=== PATIENT | female | born 1995 | race Caucasian/White ===

== ENCOUNTER 2016-09-16 13:47 | Emergency (ER) | payer MEDICAID ==
--- NOTE | 2016-09-16 13:58 | ER Document Report ---
ED Medical Screen (RME) - General Stated Complaint: VOMITING Notes: 20 yo c/o vomiting x 3 days. G1 14 wks gestation. no abdominal pain. no vaginal bleeding. OB - [facility] + sick exposures at work. abdomen is soft, nontender. no guarding - Related Data Allergies/Adverse Reactions: No Known Allergies Allergy (Unverified 09/16/16 13:55)
[2016-09-16 14:14] LABS: ABSOLUTE LYMPHOCYTES (AUTO) 1.4 10^3/uL (0.5-4.7); ABSOLUTE MONOCYTES (AUTO) 0.5 10^3/uL (0.1-1.4); BASOPHILS % (AUTO) 0.2 % (0-2); EOSINOPHILS % (AUTO) 0.1 % (0-6); HEMATOCRIT 40.4 % (36.0-47.0); HEMOGLOBIN 13.9 g/dL (12.0-15.5); HGB HCT DIFFERENCE 1.3; LYMPHOCYTES % (AUTO) 18.3 % (13-45); MEAN CORPUSCULAR HEMOGLOBIN 28.2 pg (27.0-33.4); MEAN CORPUSCULAR HGB CONC 34.4 g/dL (32.0-36.0); MEAN CORPUSCULAR VOLUME 82 fl (80-97); MONOCYTES % (AUTO) 5.8 % (3-13); RED BLOOD COUNT 4.94 10^6/uL (3.72-5.28); RED CELL DISTRIBUTION WIDTH 14.5 % (11.5-14.0); SEGMENTED NEUTROPHILS % (AUTO) 75.6 % (42-78); WHITE BLOOD COUNT 7.9 10^3/uL (4.0-10.5)
[2016-09-16 14:23] LABS: APPEARANCE,URINE SLIGHTLY-CLOUDY; BILIRUBIN,URINE NEGATIVE (NEGATIVE); GLUCOSE, URINE NEGATIVE (NEGATIVE); KETONES,URINE 80 mg/dL (NEGATIVE); LEUKOCYTE ESTERASE,URINE TRACE (NEGATIVE); NITRITE,URINE NEGATIVE (NEGATIVE); PROTEIN,URINE 30 mg/dL (NEGATIVE); URINE SPECIFIC GRAVITY 1.031
[2016-09-16 14:29] LABS: ALANINE AMINOTRANSFERASE 25 U/L (5-35); ALBUMIN 4.3 g/dL (3.7-5.6); ALKALINE PHOSPHATASE 61 U/L (50-135); ANION GAP 15 (5-19); ASPARTATE AMINO TRANSFERASE 23 U/L (5-30); BILIRUBIN,TOTAL 0.5 mg/dL (0.2-1.3); BLOOD UREA NITROGEN 9 mg/dL (7-20); CALCIUM 9.8 mg/dL (8.4-10.2); CARBON DIOXIDE 21 mmol/L (22-30); CHLORIDE 103 mmol/L (98-107); CREATININE RESULT 0.61 mg/dL (0.52-1.25); GLUCOSE 83 mg/dL (75-110); POTASSIUM 4.1 mmol/L (3.6-5.0); SODIUM 138.5 mmol/L (137-145); TOTAL PROTEIN 7.2 g/dL (6.3-8.2)
--- NOTE | 2016-09-16 17:35 | ER Document Report ---
ED GI/ <CHRISTIANO GOEL - Last Filed: 09/17/16 00:21> - General TRAVEL OUTSIDE OF THE [place] IN LAST 30 DAYS: No - HPI Patient complains to provider of: Vomiting Onset: Other - see HPI note <SHAD BAEZA - Last Filed: 09/17/16 00:28> - General Chief Complaint: Vomiting Stated Complaint: VOMITING Notes: Patient is a 18-year-old female presented emerged department for complaint of vomiting. Patient is almost 14 weeks' . Patient states she has been vomiting since Wednesday night. Patient said she stopped vomiting Wednesday morning and it started up again last night and today. Patient states that her [employer] is Dr. Goodman patient has not seen him yet. Patient states that her appointment is next Wednesday. Patient states she also had some diarrhea the first day that she was vomiting, but none since. Patient denies any abdominal pain, vaginal bleeding, or fever. Patient has no known allergies. (SHAD BAEZA) - Related Data Allergies/Adverse Reactions: No Known Allergies Allergy (Unverified 09/16/16 13:55) Past Medical History - General Information source: Patient, Parent - Social History Smoking Status: Never Smoker Cigarette use (# per day): No Chew tobacco use (# tins/day): No Frequency of alcohol use: None Drug Abuse: None Family History: None Patient has suicidal ideation: No Patient has homicidal ideation: No <SHAD BAEZA - Last Filed: 09/17/16 00:28> Review of Systems - Review of Systems Constitutional: No symptoms reported EENT: No symptoms reported Cardiovascular: No symptoms reported Respiratory: No symptoms reported Gastrointestinal: See HPI, Nausea, Vomiting Genitourinary: No symptoms reported Female Genitourinary: No symptoms reported Musculoskeletal: No symptoms reported Skin: No symptoms reported Hematologic/Lymphatic: No symptoms reported Neurological/Psychological: No symptoms reported -: Yes All other systems reviewed and negative <SHAD BAEZA - Last Filed: 09/17/16 00:28> Physical Exam - Vital signs Interpretation: Normal - General General appearance: Appears well, Alert In distress: Mild - HEENT Head: Normocephalic, Atraumatic Eyes: Normal Pupils: PERRL Mucous membranes: Moist - Respiratory Respiratory status: No respiratory distress Chest status: Nontender Breath sounds: Normal Chest palpation: Normal - Cardiovascular Rhythm: Regular Heart sounds: Normal auscultation Murmur: No - Abdominal Inspection: Normal Distension: No distension Bowel sounds: Normal Tenderness: Nontender Organomegaly: No organomegaly - Back Back: Normal, Nontender - Extremities General upper extremity: Normal inspection, Normal ROM, Normal strength General lower extremity: Normal inspection, Normal ROM, Normal strength - Neurological Neuro grossly intact: Yes Cognition: Normal Orientation: AAOx4 Deepa Coma Scale Eye Opening: Spontaneous [place] Coma Scale Verbal: Oriented [place] Coma Scale Motor: Obeys Commands [place] Coma Scale Total: 15 Speech: Normal - Psychological Associated symptoms: Normal affect, Normal mood - Skin Skin Temperature: Warm Skin Moisture: Dry <SHAD BAEZA - Last Filed: 09/17/16 00:28> - Vital signs Vitals: Temp Pulse Resp BP Pulse Ox 98.4 F 113 H 16 119/87 H 100 09/16/16 13:51 09/16/16 13:51 09/16/16 13:51 09/16/16 13:51 09/16/16 13:51 Course - Laboratory Result Diagrams: 09/16/16 14:00 09/16/16 14:00 <CHRISTIANO GOEL - Last Filed: 09/17/16 00:21> - Laboratory Result Diagrams: 09/16/16 14:00 09/16/16 14:00 <SHAD BAEZA - Last Filed: 09/17/16 00:28> - Re-evaluation Re-evalutation: 09/17/16 00:21 I personally performed the services described in the documentation, reviewed and edited the documentation which was dictated to my scribe in my presence, and it accurately records my words and actions. Patient is and has intermittent vomiting for the past 2 or 3 days. She says she can't stand the smell of food when she tries to eat and she vomits. She is on any diarrhea fever chills or abdominal pain. She has not yet seen her [employer] physician she is well-appearing nontoxic in no acute distress afebrile no acute abdominal findings no urinary tract infection or infection. We discussed Zofran has a risk associated with it recommended to try Reglan. Told her that the risk of Reglan as a side effect is agitation and irritability. Patient is not dehydrated is well-appearing nontoxic and was started on Reglan if she needs to use it otherwise told her to drink and keep fluids down at least 20 minutes she'll follow-up with the [employer] physician to 3 days and discussed reasons for ED return sooner (CHRISTIANO GOEL) - Vital Signs Vital signs: Temp Pulse Resp BP Pulse Ox 98.0 F 100 H 18 111/61 98 09/16/16 18:06 09/16/16 18:06 09/16/16 18:06 09/16/16 18:06 09/16/16 18:06 - Laboratory Laboratory results interpreted by me: 09/16/16 09/16/16 09/16/16 14:00 14:00 14:00 RDW 14.5 H Carbon Dioxide 21 L Serum HCG, Qual POSITIVE H Beta HCG, Quant Urine Protein Urine Ketones Urine Urobilinogen Ur Leukocyte Esterase 09/16/16 09/16/16 14:00 14:05 RDW Carbon Dioxide Serum HCG, Qual Beta HCG, Quant 990074.00 H Urine Protein 30 H Urine Ketones 80 H Urine Urobilinogen 2.0 H Ur Leukocyte Esterase TRACE H Discharge <CHRISTIANO GOEL - Last Filed: 09/17/16 00:21> <SHAD BAEZA - Last Filed: 09/17/16 00:28> - Discharge Clinical Impression: Vomiting affecting Condition: Stable Disposition: HOME, SELF-CARE Additional Instructions: Vomiting Vomiting (or nausea without vomiting) can be caused by many other different problems. It can mean that something's wrong with the stomach, such as ulcers or inflammation or the intestinal tract, such as appendicitis. But it can also be a symptom of a problem that has nothing to do with the stomach or intestines. Vomiting is common with severe headaches, earaches, tonsillitis, and kidney infections, etc. We see it with pneumonia or heart attacks. Drugs can cause nausea and vomiting. Many abdominal problems cause vomiting; for example, gallstones, kidney stones, pancreatitis, and intestinal obstruction ( blocked bowels). In most cases, curing the vomiting depends on fixing the problem that caused it. For temporary relief, we may use an anti-nausea medicine. For home use, we can prescribe suppositories, chewable pills, pills that dissolve in the mouth, or liquid anti-nausea drugs. If the vomiting seems to be caused by a problem in the stomach, acid-suppressing drugs may be prescribed as well. It's important to avoid dehydration. Sip small amounts of clear liquids ( soft drinks, tea, broth, etc) . Try to take fluids frequently even if you are vomiting to prevent dehydration. Take increasing amounts of fluid and when liquids are being consumed successfully, advance to small amounts of bland food (toast, soups, mashed potatoes, etc.) until you are able to resume a regular diet. Avoid aspirin, tobacco, and alcohol. If the vomiting worsens, if the problem that's making you vomit worsens, or if there's evidence of bleeding in the stomach (such as black, tarry stool, or bloody or black vomit), you should return immediately. Also, return if abdominal pain worsens or becomes localized to one area or you develop high fever. Call your doctor if you aren't improved in 24 hours. Prescriptions: Metoclopramide HCl [Reglan 10 mg Tablet] 1 - 2 tab PO ASDIR PRN #25 tablet PRN Reason: Referrals: KENYA GOODMAN MD [Primary Care Provider] - Follow up as needed (In 2-3 days return for increasing worsening or new symptoms) Scribe Documentation - Scribe Written by Stacie:: Shad Baeza 09/16/16 19:00 acting as scribe for :: Quincy <SHAD BAEZA - Last Filed: 09/17/16 00:28>
[2016-09-16 18:08] VITALS: BP 111/61
== END 2016-09-16 18:06 | disposition home or self-care (01) ==
LOC: ER 13:47
DX: O21.8 Other vomiting complicating pregnancy (principal); Z3A.14 14 weeks gestation of pregnancy
CPT/HCPCS: 36415; 80053; 81001; 83690; 84702; 84703; 85025; 99283